=== PATIENT | male | born 1990 | race Caucasian/White ===

== ENCOUNTER 2024-11-02 19:59 | Emergency (ER) | payer OTHER ==
[~2024-11-02] VITALS: Ht 182.9 cm; Wt 81.6 kg
[2024-11-03 05:04] VITALS: BP 126/80; TEMP 97; O2SAT 100
== END 2024-11-03 05:04 | disposition home or self-care (01) ==
LOC: ER 20:03
DX: M79.671 Pain in right foot (principal); M79.672 Pain in left foot; Z59.00 Homelessness unspecified; Z60.2 Problems related to living alone
CPT/HCPCS: 73630-TC